=== PATIENT | male | born 1975 | race Two or more races ===

== ENCOUNTER 2021-01-21 17:07 | Emergency (ER) | payer OTHER ==
[2021-01-21 17:12] VITALS: BP 146/85; PULSE 80; TEMP 97.9; BMI 27.8
[2021-01-21] MEDS ORDERED: KETOROLAC TROMETHAMINE 30 MG/1 ML VIAL IM ONE (18:10)
[2021-01-21] MEDS ORDERED: LIDOCAINE 5% TOPICAL PATCH TP ONE (18:11)
[2021-01-21] MEDS ORDERED: KETOROLAC TROMETHAMINE 30 MG/1 ML VIAL ONE (18:19)
[2021-01-21] MEDS ORDERED: LIDOCAINE 5% TOPICAL PATCH ONE (18:19)
[2021-01-22] MEDS ORDERED: LIDOCAINE PATCH REMOVAL MC SCH (06:00)
== END 2021-01-21 19:52 | disposition home or self-care (01) ==
LOC: JERFT 17:07
PROC: 3E0233Z Introduction of Anti-inflammatory into Muscle, Percutaneous Approach (ICD-10-PCS; principal; 2021-01-21)
DX: M54.5 Low back pain (principal); W01.0XXA Fall on same level from slipping, tripping and stumbling without subsequent striking against object, initial encounter; Y93.02 Activity, running; Y93.64 Activity, baseball; Y92.320 Baseball field as the place of occurrence of the external cause
CPT/HCPCS: 72100-TC-FY; 99284-25